=== PATIENT | female | born 1975 | race Caucasian/White ===

== ENCOUNTER 2016-06-16 10:17 | Inpatient (IN) | payer MEDICARE, OTHER ==
--- NOTE | ~2016-06-16 | DS ---
Discharge Summary [facility] [address] [facility] [place]. [address] NAME: SOURAV MCNEILL : 71 STATUS : DIS IN PAT#: [id number] AGE: 41 ADM/REG DATE : 06/16/16 MR#: [id number] REPORT SERV DATE: 06/21/16 DICTATED BY: TAMIA FRANCO DATE: 06/20/16 REPORT STATUS : Draft TRANSCRIBED BY: MODL DATE: 06/20/16 ADMISSION DATE: 06/16/2016 DISCHARGE DATE: 06/20/2016 ADMITTING DIAGNOSIS: Iatrogenic skull base injury during sinus surgery. REASON FOR ADMISSION: Observation for CSF leakage after endoscopic repair of skull base injury. HISTORY OF PRESENT ILLNESS: This is a 41-year-old paraplegic female, who underwent a left functional endoscopic sinus surgery on 06/16/2016. The surgery was largely successful and evacuating large infectious process from the left maxillary sinus and left frontal sinus. During the course of the anterior ethmoidectomy toward the end of the case, I noted a small fracture in the thin ethmoid cribriform plate area and there was a slow egress of clear fluid, which I assume to be CSF. Given this finding, I proceeded with an endoscopic repair using tissue sealant, free mucosal grafting, and packing. My intentions for admission were to maintain adequate CSF leak precautions, including no Valsalva, keeping the head up and no strenuous activity. During the patient's inpatient stay, she tolerated a regular diet. She had no leaking of fluid out of her nose. She did have some left eye swelling, which resolved in 24 hours with appropriate care. Her pain was well controlled with nonsteroidal anti-inflammatory medications and was afebrile throughout the course. PAST MEDICAL HISTORY: Includes the above plus paraplegia and she takes chronic antibiotics for her hip. PHYSICAL EXAMINATION: GENERAL: On the day of discharge, the patient was awake, alert, and eating a regular breakfast. HEENT: Eye swelling was very minimal. The nasal packing was in place. VITAL SIGNS: She was afebrile and vital signs were stable. DISCHARGE ACTIVITY: No lifting more than 5 pounds. No nose blowing. Sneezing through the mouth only. No Valsalva and sleeping with head above her heart. DISCHARGE FOLLOWUP: On at 1 o'clock in my office. DISCHARGE DIET: Regular. The patient may shower. ASSESSMENT: Long-term outcome is very good for resolution of her CSF leak. We will monitor her for signs of sinusitis carefully in an outpatient setting. PS/MODL Peter Discharge Summary [address] [address] NAME: SOURAV MCNEILL : 71 STATUS : DIS IN PAT#: [id number] AGE: 41 ADM/REG DATE : 06/16/16 MR#: [id number] REPORT SERV DATE: 06/21/16 DICTATED BY: TAMIA FRANCO DATE: 06/20/16 REPORT STATUS : Draft TRANSCRIBED BY: MODL DATE: 06/20/16 MD Cori / [id number] CC: MD Juan Galdamez M.D.
--- NOTE | ~2016-06-16 | OP ---
Record Of Operation [facility] [address] [place]. [address] NAME: SOURAV MCNEILL : 71 STATUS : ADM IN [facility]#: [id number] AGE: 41 ADM/REG DATE : 06/16/16 MR#: [id number] REPORT SERV DATE: 06/16/16 DICTATED BY: TAMIA FRANCO DATE: 06/16/16 REPORT STATUS : Draft TRANSCRIBED BY: MODL DATE: 06/16/16 DATE OF PROCEDURE: 06/16/2016 SERVICE: Otolaryngology. PREOPERATIVE DIAGNOSIS: Acute on chronic rhinosinusitis of the left maxillary, frontal and anterior ethmoid sinuses. POSTOPERATIVE DIAGNOSES: Acute on chronic rhinosinusitis of the left maxillary, frontal and anterior ethmoid sinuses plus iatrogenic skull base fracture with CSF leak. SURGEON: Tamia Franco MD ANESTHESIA: General endotracheal anesthesia. COMPLICATIONS: Anterior skull base fracture with CSF leak. FINDINGS: The patient had a completely impacted frontal maxillary sinuses. There was a large amount of pus released and drained. She had a very narrow frontal sinus outflow tract that could easily be cannulated with a wire, but the balloon would not fit through. I believe the injury occurred when I was probing for the frontal sinus outflow tract with a frontal sinus probe. I believe the amount of inflammation present at that time led to weakness in this area that may have helped predispose to this injury. The CSF leak was patched with tissue sealant free septal grafts, absorbable Gelfoam gauze, and a Joseph pack. STATEMENT OF MEDICAL NECESSITY: This is a 41-year-old female with a three-month history of severe sinusitis on the left-hand side, had been seen by another ENT, but came to me for second opinion. She had been on three courses of antibiotics and even following that, a CT scan showed completely opacified frontal, maxillary and ethmoid sinuses. Given this finding and her failure to resolve with medical therapy, I recommended functional endoscopic sinus surgery to clear her disease. STATEMENT OF OPERATION: The patient was brought to the operating room in supine position, transferred over to the operating room table after all pressure points were padded and general endotracheal anesthesia was established. The patient's nose was prepared with 4% cocaine pledgets on the left side. She was then draped out for sinus surgery. The pledgets were removed. Lidocaine 1% with epinephrine was injected into the lateral nasal wall through the middle turbinate and anterior face of the middle turbinate. Then, using a 0 degree endoscope, the middle turbinate was gently medialized with a Kramer elevator. There was a large bulge of the uncinate process outwards. I was able to cannulate the maxillary sinus with a frontal sinus probe. Upon cannulation and widening of the natural ostium, a large amount of purulent material was expressed into the cavity. I removed the uncinate process completely using pediatric backbiting forceps and a microdebrider. The maxillary sinus was irrigated out thoroughly with warm saline until all the pus was cleared. The mucosa of the maxillary sinus was very inflamed and edematous. Next, with a maxillary sinus Record Of Operation [address] [place]. [address] NAME: SOURAV MCNEILL : 71 STATUS : ADM IN [facility]#: [id number] AGE: 41 ADM/REG DATE : 06/16/16 MR#: [id number] REPORT SERV DATE: 06/16/16 DICTATED BY: TAMIA FRANCO DATE: 06/16/16 REPORT STATUS : Draft TRANSCRIBED BY: SUN DATE: 06/16/16 probe, I followed the middle turbinate to its attachment to the lateral nasal wall and I pulled the anterior ethmoid cells forward in the inferior location. I gently micro debrided these out of the way between the middle turbinate and the lamina papyracea. As I got up around the mid ways, I stopped prior to reaching the skull base. I used a 45-degree up- biting forceps and made a punch out in the attachment of the middle turbinate to the lateral nasal wall. This allowed me to see the Agger nasi cells. Using a J curette, I gently swept these forward and removed them with a 45-degree alligator forceps. Next, I used the Acclarent Relieva balloon system to cannulate the frontal sinus, this was done rather easily. I got very focal light transparence across the forehead. However, after a couple of attempts, was not able to pass the balloon through the frontal sinus outflow tract, only the wire would pass. I did not force it at this point, I did remove some more tissue from around the frontal sinus outflow tract and I was able to see it, but it was very narrow. When I cannulated it originally, pus came flowing out of the sinus and it was suctioned free. I did remove the remainder of the anterior ethmoid cells from along the skull base, and as I was finishing and getting ready to place a Propel stent, I noticed clear fluid emanating from the anterior skull base. Using angled scope and after I had stopped all the blood from oozing, I did note a small fracture in the skull base in that area. Once I identified this as a CSF leak, I planned a repair. Next, I placed Afrin-soaked pledgets in the area. I injected 1% lidocaine with epinephrine in the contralateral nasal septal mucosal flap. I harvested mucosal flap free graft from that side and placed it in saline. I placed an Afrin-soaked pledget over the wound. Then using a tissue sealant, I removed the Afrin pledget from the left side, I sealed off the area with tissue seal, and then under endoscopic guidance, placed a free mucosal graft over the area that was sealed. I then packed absorbable Gelfoam gauze on top of the graft, and finally, I placed a Joseph pack on top of that to hold everything in place. At this point, I suctioned out the nasal cavity. I did not see any evidence of clear drainage after the pack had been placed. I did place a small mini Propel in the maxillary sinus given its state of inflammation to help reduce that inflammation. This concluded the case. The patient then awoke, was extubated, and transferred to the PACU in stable condition. I interviewed the patient's family and the patient in the PACU. I notified them of the complication from surgery and what I had done to repair it. I also told them I plan to admit her for observation for the next 48 hours minimum, possibly three days, also with the precautions to keep head above her heart, to avoid nose blowing, straining, sneezing. I discussed this with the patient's family and the patient herself. In addition, I also consulted Wound Care to help with her body positioning as she is paraplegic and very prone to getting pressure sores. PS/MODL Tamia Franco MD / [id number] CC: Tamia Franco MD
[~2016-06-16 10:17] MED LIST: CEFT5 PO; CELEXA20 PO; DURICEF PO; IBU-200200 MG PO; KLONO5 PO; PRENATABS RX PO; X5 PO
[2016-06-16 10:43] LABS: BASOPHILS 0.4 %; BASOPHILS ABSOLUTE 0.03 10/3/uL (0.0-0.16); EOSINOPHILS 1.9 %; EOSINOPHILS ABSOLUTE 0.14 10/3/uL (0.0-0.53); HEMATOCRIT 38.9 % (36.0-48.0); HEMOGLOBIN 12.3 g/dL (12.0-16.0); IMMATURE GRANULOCYTES 0.3 %; IMMATURE GRANULOCYTES ABSOLUTE 0.02 10/3/uL (0.0-0.11); LYMPHOCYTES 30.5 %; LYMPHOCYTES ABSOLUTE 2.29 10/3/uL (0.67-4.30); MEAN CORPUS HGB CONC 31.6 g/dL (32.0-36.0); MEAN CORPUSCULAR HEMOGLOB 25.5 pg (26.0-34.0); MEAN CORPUSCULAR VOLUME 80.5 fL (80-100); MEAN PLATELET VOLUME 8.2 fL (9.2-13.0); MONOCYTES 6.4 %; MONOCYTES ABSOLUTE 0.48 10/3/uL (0.21-1.20); NEUTROPHILS 60.5 %; NEUTROPHILS ABSOLUTE 4.56 10/3/uL (2.02-8.40); PLATELET COUNT 253 10/3/uL (150-400); RBC DISTRIBUTION WIDTH 16.4 % (12.0-16.0); RED CELL COUNT 4.83 10/6/uL (4.0-5.6); WHITE BLOOD CELLS 7.5 10/3/uL (4.5-10.5)
[2016-06-16 10:48] LABS: MANUAL DIFF NO %
[2016-06-16 10:56] LABS: BUN (BLOOD UREA NITROGEN) 8 MG/DL (6-23); CALCIUM, SERUM 8.6 MG/DL (8.5-10.4); CHLORIDE, SERUM 108 MMOL/L (96-112); CO2 (CARBON DIOXIDE) 30 MMOL/L (24-34); CREATININE 0.34 MG/DL (0.55-1.02); GFR AFRICAN AMERICAN 156 ML/MIN (>=60); GFR NON AFRICAN AMERICAN 135 ML/MIN (>=60); GLUCOSE, SERUM 117 MG/DL (60-99); POTASSIUM, SERUM 4.1 MMOL/L (3.5-5.3); SODIUM, SERUM 144 MMOL/L (135-148)
[2016-06-16] MEDS ORDERED: VENTOLIN HFA INH (17:04)
[2016-06-16] MEDS ORDERED: FLONASE NAS (17:05)
[2016-06-16] MEDS ORDERED: ACET500CAP PO (17:07)
[2016-06-16] MEDS ORDERED: P20 PO (17:09)
[2016-11-14] MEDS ORDERED: MULTIPLE VIT PO (16:30)
[2016-12-14] MEDS ORDERED: CEFADROXIL1 GM PO (12:22)
[2016-12-14] MEDS ORDERED: CELEXA20 PO (12:22)
[2016-12-14] MEDS ORDERED: KLONO5 PO (12:23)
[2016-12-14] MEDS ORDERED: VENTOLIN HFA PO (12:23)
[2016-12-14] MEDS ORDERED: CENTRUM PO (12:23)
== END 2016-06-20 15:58 | disposition home or self-care (01) | DRG 908 ==
LOC: SDC 10:17 → SDC/OF 14:48 → 4SO 16:55
PROVIDERS: Otolaryngology
PROC: 099T4ZZ Drainage of Left Frontal Sinus, Percutaneous Endoscopic Approach (ICD-10-PCS; principal; 2016-06-16 11:45)
PROC: 00U Central Nervous System and Cranial Nerves, Supplement (ICD-10-PCS; principal; 2016-06-16 11:45)
PROC: 09BV4ZZ Excision of Left Ethmoid Sinus, Percutaneous Endoscopic Approach (ICD-10-PCS; principal; 2016-06-16 11:45)
PROC: 099R4ZZ Drainage of Left Maxillary Sinus, Percutaneous Endoscopic Approach (ICD-10-PCS; principal; 2016-06-16 11:45)
DX: G97.49 Accidental puncture and laceration of other nervous system organ or structure during other procedure (principal); G82.20 Paraplegia, unspecified; G97.0 Cerebrospinal fluid leak from spinal puncture; S02.0XXA Fracture of vault of skull, initial encounter for closed fracture; Z93.6 Other artificial openings of urinary tract status; J01.81 Other acute recurrent sinusitis; J32.8 Other chronic sinusitis; F17.210 Nicotine dependence, cigarettes, uncomplicated; Z98.1 Arthrodesis status; Z88.1 Allergy status to other antibiotic agents; Z91.048 Other nonmedicinal substance allergy status; Y83.8 Other surgical procedures as the cause of abnormal reaction of the patient, or of later complication, without mention of misadventure at the time of the procedure; Y92.234 Operating room of hospital as the place of occurrence of the external cause; F41.9 Anxiety disorder, unspecified
CPT/HCPCS: 80048; 84703; 85025; 88305; 93005; A9270-GY; C1725; C1726; J1170; J2250; J2405; J2710; J3010